=== PATIENT | female | born 1960 | race Caucasian/White ===

== ENCOUNTER 2024-12-22 09:15 | Day surgery (SDC) | payer MEDICARE, BC ==
--- NOTE | 2024-12-18 14:31 | ELECTROCARDIOGRAPH REPORT ---
[facility] Test Date: 2024-12-18 Test Time: 14:29:14 Pat Name: JULIO C HUITRON Department: [facility]-PRE-OP Patient ID: [id number] Room: Gender: F [employer] Person: MONIQUE : 1960 Requested By: ANA IBARRA Order Number: [id number] Reading MD: Dr. Uri Mtz Measurements Intervals [place] Rate: 66 P: 62 W[place]: 165 QRS: 41 QRSD: 73 T: 28 QT: 427 QTc: 448 Interpretive Statements Sinus rhythm Probable left atrial enlargement Anterior infarct, old Minimal ST elevation, inferior leads Electronically Signed On 12-19-2024 8:51:[address] Uri Mtz Please click the below link to view image of tracing.
[2024-12-18 14:37] LABS: MEAN PLATELET VOLUME 8.0 FL (7.4-10.4); RED CELL DISTRIBUTION WIDTH 13.9 % (11.5-14.5)
[2024-12-18 14:52] LABS: CREATININE 0.70 MG/DL (0.40-0.90); TOTAL CARBON DIOXIDE 27.2 MMOL/L (24-32); eGFR 84 ML/MIN
[~2024-12-22] VITALS: Ht 162.6 cm; Wt 59.6 kg
[2024-12-22] VITALS (7 sets, daily range): BP systolic 148–173; BP diastolic 76–90; PULSE 65–72; RESP 12–16; TEMP 98.1; O2SAT 96–100
[2024-12-22] MEDS: clindamycin-Cleocin 900mg/D5W 50 ML IV ONE (05:30)
[~2024-12-22 09:15] MED LIST: BUPIVAcaine/PF 2.5mg/ml (0.25%) 10ml vial ONE; BUTA-245 PO; DILT240C94 PO; LIDOcaine 2% (20mg/ml) 5ml vial ONE; LOSA100T58 PO; NORCO10T PO; OMEP40CA21 PO; ZOLP-679 PO
[2024-12-22] MEDS: ringers solution, lacted 1,000 ML IV SCH ×2 (10:04→12:40)
[2024-12-22] MEDS ORDERED: cloNIDine hcl/PF 100mcg/ml inj ONE (10:04)
[2024-12-22] MEDS ORDERED: fentaNYL/PF 50MCG/1 ML 2ML syringe IV PRN ×2 (11:00)
[2024-12-22] MEDS ORDERED: labetalol 20mg/4ml (5mg/ml) syringe IV PRN (11:00)
[2024-12-22] MEDS ORDERED: acetaminophen 1,000mg/100ml IV 100 ML IV PRN (11:00)
[2024-12-22] MEDS ORDERED: ondansetron/PF 4mg/2ml inj IV PRN (11:00)
[2024-12-22] MEDS ORDERED: hydrALAZINE 20mg/ml inj. IV PRN (11:00)
[2024-12-22] MEDS ORDERED: HYDROmorphone/PF 0.2 MG/ML SYRINGE IV PRN ×2 (11:00)
[2024-12-22] MEDS ORDERED: fentaNYL/PF 50MCG/1 ML 2ML syringe ONE (11:10)
[2024-12-22] MEDS ORDERED: propofol inj 20 ML IV ONE (11:36)
[2024-12-22] MEDS ORDERED: midazolam 1 mg/ML 2ml injection ONE (11:36)
[2024-12-22] MEDS ORDERED: LIDOcaine 2% (20mg/ml) 5ml vial ONE (11:36)
[2024-12-22] MEDS ORDERED: ROPIVAcaine 0.5% (5mg/ml) 30ml vial ONE (11:36)
[2024-12-22] MEDS ORDERED: ondansetron/PF 4mg/2ml inj ONE (11:38)
[2024-12-22] MEDS ORDERED: dexamethasone sod phosphate 4mg/ml inj. ONE (11:38)
[2024-12-22] MEDS: BUPIVAcaine/PF 2.5mg/ml (0.25%) 10ml vial IJ ONE (11:40)
--- NOTE | 2024-12-22 12:59 | OPERATIVE REPORT ---
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 Injury occurred approximately one month ago. Initially x-rays showed adequate positioning of the fracture sites but over the next several weeks progressively went into dorsal angulation to an acceptable amount. Surgery is indicated to improve function and prevent deformity. The risks, benefits, expected results, and possible complications of the planned procedure had been explained to the patient and informed consent obtained. After the axillary block and general anesthetic was administered, the arm was prepped and draped. Proper time-out procedure was observed. An incision was made over the flexor carpi radialis tendon, with an interval in the deeper tissues between it and the radial artery. The pronator Quadratus was elevated off the distal radius, exposing the fracture. The fracture was fairly solidly united and it is dorsally angulated position so the use of a [place] and a osteotome were needed to break up the dorsal healing and to help correct the angular deformity. The fracture was eventually reduced with traction, instrumentation, and bone clamps. The bone bridge distal radius locking plate was used, affixed over the fracture, with proximal screws. After confirming position on C-arm, the extra and intra articular fracture was reduced to the plate and held with distal locking screws, stabilizing the articular surface. Final fluoro imaging was done, confirming screw placement and reduction. The wound was irrigated and closed in layers. Marcaine was injected, and a sterile dressing was applied, followed by a short arm plaster splint. The tourniquet was released and the patient was returned to the PACU in stable condition. Sponge and needle counts were correct. Counts repoted as correct: Yes DENIS JAMISON Jr., MD Dec 22, 2024 12:59
== END 2024-12-22 13:37 | disposition home or self-care (01) ==
LOC: PAS 09:15
PROVIDERS: ATTEND Orthopaedic Surgery Hand Surgery
DX: S52.572A Other intraarticular fracture of lower end of left radius, initial encounter for closed fracture (principal); G89.18 Other acute postprocedural pain; I25.2 Old myocardial infarction; I10 Essential (primary) hypertension; G43.909 Migraine, unspecified, not intractable, without status migrainosus; M81.0 Age-related osteoporosis without current pathological fracture; Z79.891 Long term (current) use of opiate analgesic; Z79.899 Other long term (current) drug therapy; Z90.49 Acquired absence of other specified parts of digestive tract; Z88.0 Allergy status to penicillin; Z88.1 Allergy status to other antibiotic agents; Z88.5 Allergy status to narcotic agent; Z91.041 Radiographic dye allergy status; Z88.8 Allergy status to other drugs, medicaments and biological substances; X58.XXXA Exposure to other specified factors, initial encounter; Y93.89 Activity, other specified; Y92.89 Other specified places as the place of occurrence of the external cause; Y99.8 Other external cause status
CPT/HCPCS: 25608; 36415; 64417; 80053; 82948; 85025; 93005; A4215; A4618; A6402; A6449; C1713; J0735; J1100; J2003; J2250; J2405; J2704; J2795; J3010; J3490; J7030; J7120; Z7506; Z7508; Z7512; Z7610